=== PATIENT | male | born 1970 | race Caucasian/White ===

== ENCOUNTER → 2021-12-17 08:57 | Outpatient (BNVA) | payer OTHER, SELFPAY | PROVIDERS: PCP Physician Assistant | DX: R35.1 Nocturia (principal) | CPT/HCPCS: 51798 ==

== ENCOUNTER → 2022-02-14 08:34 | Outpatient (BNVA) | payer OTHER, SELFPAY | PROVIDERS: PCP Physician Assistant; Visit Provider Urology | DX: N39.43 Post-void dribbling (principal); N52.9 Male erectile dysfunction, unspecified; R35.1 Nocturia | CPT/HCPCS: 51798 ==